=== PATIENT | female | born 1960 | race Two or more races ===

== ENCOUNTER 2017-02-20 20:55 | Emergency (ER) | payer SELFPAY ==
[~2017-02-20] VITALS: Ht 167.6 cm; Wt 76.7 kg
[2017-02-20 21:03] VITALS: BP 152/88
== END 2017-02-21 00:59 | disposition left against medical advice (07) ==
LOC: ER 20:55
DX: M54.9 Dorsalgia, unspecified (principal); M54.2 Cervicalgia; Z53.21 Procedure and treatment not carried out due to patient leaving prior to being seen by health care provider; V73.9XXA Unspecified occupant of bus injured in collision with car, pick-up truck or van in traffic accident, initial encounter; Y93.89 Activity, other specified; Y92.89 Other specified places as the place of occurrence of the external cause; Y99.8 Other external cause status
CPT/HCPCS: 72125; 72128; 72131